=== PATIENT | male | born 1955 | race African-American/Black ===

== ENCOUNTER 2018-11-24 10:00 | Outpatient (RCR) | payer MEDICARE, MEDICAID, SELFPAY ==
--- NOTE | 2018-10-02 15:28 | HMH.PTOPWND ---
Rehab Outpt Wound Evaluation Rehab OP Wound Evaluation Start: 10/02/18 15:21 Freq: Status: Active Protocol: Document 10/02/18 15:21 FRANCK (Rec: 10/02/18 15:28 PHORMONI [id number]) Electronically Signed By Antonino Danielle, PT 10/02/18 15:21 Subjective/History History History Pt is a 62 yoaam who presents with c/o july LE edema x several years, worse over the past 6-8 mos after undergoing right TKA. He reports poor mobility after his TKA and difficulty performing his exercises which has increased his edema. He also has poor ambulation with mobility by w/ c only. He reports no c/o pain currently, but is very tender to palpation in the right lower leg. He has hx of CKD with renal failure, july TKA, right ankle ORIF, DM-II, and HTN. He is currently residing in a longterm. Lymphedema Eval Classification of Lymphedema Secondary Lymphedema Yes Stemmer's sign Stemmer's Sign yes Stage of Lymphedema Lymphedema stages Stage II (Pitting edema, increased fibrosis w/ decreased pitting) Skin Changes Dry Skin Yes Taut, Shiny Skin Yes Brittle Uneven Nails Yes Other Changes Yes Affected Extremities Areas Affected by Lymphedema/Edema Right Lower Extremity Left Lower Extremity Manual Lymphatic Drainage Treatment Area MLD Treatment Area Right Lower Extremity Left Lower Extremity Wound Problems/Impairments Impairments Problems/Impairmments Palpation Tenderness Impaired Strength Impaired Endurance Impaired Gait Pattern Impaired Walking Impaired Standing Impaired Dressing Impaired Shower/Bathing Increased Edema Lymphedema Present Subjective C/O Pain Impaired Self Care/Self Management Prognosis Rehab Potential Fair Clinical Impression Consistent with Diagnosis Yes Short Term Goals
== END 2018-11-24 10:05 | disposition home or self-care (01) ==
LOC: PT 10:00
PROVIDERS: Visit Provider Internal Medicine Adolescent Medicine
DX: I89.0 Lymphedema, not elsewhere classified (principal); R60.0 Localized edema
CPT/HCPCS: 97140; 97163

== ENCOUNTER → 2019-07-08 14:32 | Outpatient (CLI) | payer MEDICARE, SELFPAY ==
[2019-07-08 14:45] LABS: Basophils % 0.3 % (0.1-2.0); Eosinophils # 0.2 K/mm3 (0.0-0.4); Eosinophils % 3.3 % (0.1-12.0); Hematocrit 33.8 % (42.0-52.0); Hemoglobin 10.6 g/dL (14.1-18.0); Lymphocytes # 1.8 K/mm3 (0.7-4.5); Lymphocytes % 32.3 % (10-50); Mean Corpuscular HGB Conc 31.3 g/dL (31.8-35.4); Mean Corpuscular Hemoglobin 26.7 pg (27.0-31.2); Mean Corpuscular Volume 85.3 fl (80-94); Mean Platelet Volume 7.5 fl (7.4-10.4); Monocytes # 0.4 K/mm3 (0.1-1.0); Monocytes % 6.5 % (1.7-9.3); Neutrophils # 3.3 K/mm3 (1.8-7.8); Neutrophils % 57.5 % (37.0-80.0); Platelet Count 266 K/mm3 (142-424); Red Blood Count 3.96 M/mm3 (4.60-6.20); Red Cell Distribution Width 15.3 % (11.5-17.5); White Blood Count 5.7 K/mm3 (4.8-10.8)
[2019-07-08 15:06] LABS: INR 1.21 (0.9-1.1); Prothrombin Time 12.5 seconds (9.4-11.8)
== END ==
PROVIDERS: Visit Provider Internal Medicine Adolescent Medicine
DX: R07.9 Chest pain, unspecified (principal)
CPT/HCPCS: 85025; 85610

== ENCOUNTER → 2020-09-18 09:38 | Outpatient (CLI) | payer MEDICARE, SELFPAY ==
[2020-09-18 10:07] LABS: INR 2.13 (0.9-1.1); Prothrombin Time 23.8 seconds (9.4-11.8)
== END ==
PROVIDERS: Visit Provider Nurse Practitioner Family
DX: Z51.81 Encounter for therapeutic drug level monitoring (principal); Z79.01 Long term (current) use of anticoagulants
CPT/HCPCS: 36415; 85610

== ENCOUNTER → 2020-10-23 09:13 | Outpatient (CLI) | payer MEDICARE, SELFPAY ==
[2020-10-23 15:46] LABS: Basophils % 0.4 % (0.1-2.0); Eosinophils # 0.2 K/mm3 (0.0-0.4); Eosinophils % 3.4 % (0.1-12.0); Hematocrit 35.3 % (42.0-52.0); Hemoglobin 11.2 g/dL (14.1-18.0); Lymphocytes # 2.4 K/mm3 (0.7-4.5); Lymphocytes % 48.7 % (10-50); Mean Corpuscular HGB Conc 31.8 g/dL (31.8-35.4); Mean Corpuscular Hemoglobin 27.2 pg (27.0-31.2); Mean Corpuscular Volume 85.5 fl (80-94); Mean Platelet Volume 8.4 fl (7.4-10.4); Monocytes # 0.4 K/mm3 (0.1-1.0); Monocytes % 7.4 % (1.7-9.3); Platelet Count 191 K/mm3 (142-424); Red Blood Count 4.13 M/mm3 (4.60-6.20); Red Cell Distribution Width 14.3 % (11.5-17.5); White Blood Count 4.9 K/mm3 (4.8-10.8)
[2020-10-23 15:55] LABS: Alanine Aminotransferase 13 U/L (12-78); Albumin Level 3.2 g/dl (3.5-5.0); Albumin/Globulin Ratio 1.2 (1.1-1.8); Alkaline Phosphatase 109 U/L (38-126); Anion Gap 13.4 mEq/L (5-15); Aspartate Amino Transferase 17 U/L (17-59); Bilirubin,Total 0.6 mg/dl (0.2-1.3); Blood Urea Nitrogen 37 mg/dl (9-20); Calcium 8.7 mg/dl (8.4-10.2); Carbon Dioxide 28 mmol/L (22.0-30.0); Chloride 99 mmol/L (98-107); Chol/HDL Ratio 3.3 (1-3.5); Cholesterol 108 mg/dl (140-200); Estimated Glomerular Filt Rate 8 ml/min (>60); GFR (African American) 10 ML/MIN (>60); Globulin 2.6 g/dL (1.3-3.2); Glucose 69 mg/dl (74-100); HDL Cholesterol 33 mg/dl (40-60); Potassium 4.4 mmoL/L (3.5-5.1); Sodium 136 mmol/L (136-145); Total Protein,Serum 5.8 g/dl (6.3-8.2); Triglycerides 55 mg/dl (30-150); VLDL Cholesterol 11 mg/dL (0-40)
[2020-10-23 18:33] LABS: Prothrombin Time 21.4 seconds (10.1-12.5)
[2020-10-23 21:52] LABS: Hemoglobin A1C 5.3 % (4.0-6.0)
== END ==
PROVIDERS: Visit Provider Nurse Practitioner Family
DX: I10 Essential (primary) hypertension (principal); E11.40 Type 2 diabetes mellitus with diabetic neuropathy, unspecified; Z79.84 Long term (current) use of oral hypoglycemic drugs; N18.4 Chronic kidney disease, stage 4 (severe); D64.9 Anemia, unspecified
CPT/HCPCS: 36415; 80053; 80061; 83036; 85025; 85610

== ENCOUNTER → 2020-10-31 08:58 | Outpatient (CLI) | payer MEDICARE, MEDICAID, SELFPAY ==
[2020-10-31 14:12] LABS: Potassium 4.5 mmoL/L (3.5-5.1)
== END ==
PROVIDERS: Visit Provider Nurse Practitioner Family
DX: N18.4 Chronic kidney disease, stage 4 (severe) (principal)
CPT/HCPCS: 36415; 84132

== ENCOUNTER → 2020-11-21 09:25 | Outpatient (CLI) | payer MEDICARE, MEDICAID, SELFPAY ==
[2020-11-21 14:57] LABS: Prothrombin Time 21.2 seconds (10.1-12.5)
[2020-11-21 14:58] LABS: INR 1.88 (0.9-1.1)
== END ==
PROVIDERS: Visit Provider Nurse Practitioner Family
DX: Z51.81 Encounter for therapeutic drug level monitoring (principal); Z79.01 Long term (current) use of anticoagulants
CPT/HCPCS: 36415; 85610

== ENCOUNTER → 2020-11-28 17:55 | Outpatient (CLI) | payer MEDICARE, MEDICAID, SELFPAY ==
[2020-11-28 21:21] LABS: Anion Gap 13.7 mEq/L (5-15); Blood Urea Nitrogen 24 mg/dl (9-20); Carbon Dioxide 30 mmol/L (22.0-30.0); Chloride 98 mmol/L (98-107); Estimated Glomerular Filt Rate 13 ml/min (>60); GFR (African American) 16 ML/MIN (>60); Glucose 177 mg/dl (74-100); Potassium 3.7 mmoL/L (3.5-5.1); Sodium 138 mmol/L (136-145)
== END ==
PROVIDERS: Visit Provider Nurse Practitioner Family
DX: Z01.818 Encounter for other preprocedural examination (principal)
CPT/HCPCS: 80048

== ENCOUNTER → 2020-12-25 | Outpatient (CLI) | payer MEDICARE, MEDICAID, SELFPAY ==
[2020-12-25 07:20] LABS: Microscopic, Urine URINE MICROSCOPIC (MICROSCOPIC)
[2020-12-25 14:50] LABS: Appearance,Urine CLEAR (Clear); Bilirubin,Urine Negative (Negative); Blood, Urine 1+ (Negative); Color,Urine YELLOW (Yellow); Glucose,Urine (UA) Negative (Negative); Ketones,Urine Negative (Negative); Leukocyte Esterase,Urine 2+ (Negative); Nitrate,Urine Negative (Negative); PH,Urine 8.5 (5.0-8.5); Protein,Urine 2+ (Negative); Specific Gravity, Urine 1.015 (1.005-1.030); Urobilinogen,Urine 0.2 EU/dl (0.2)
[2020-12-25 15:28] LABS: WBC,Urine TNTC #/hpf (0-3)
== END ==
PROVIDERS: Visit Provider Nurse Practitioner Family
DX: N39.0 Urinary tract infection, site not specified (principal)
CPT/HCPCS: 81001; 87086; 87088

== ENCOUNTER → 2021-01-10 15:58 | Outpatient (CLI) | payer MEDICARE, MEDICAID, SELFPAY ==
[2021-01-10 17:24] LABS: Prothrombin Time 30.2 seconds (10.1-12.5)
[2021-01-10 17:48] LABS: INR 2.76 (0.9-1.1)
== END ==
PROVIDERS: Visit Provider Nurse Practitioner Family
DX: R79.1 Abnormal coagulation profile (principal)
CPT/HCPCS: 85610

== ENCOUNTER → 2021-02-08 07:24 | Outpatient (CLI) | payer MEDICARE, MEDICAID, SELFPAY ==
[2021-02-08 14:09] LABS: Prothrombin Time 25.4 seconds (10.1-12.5)
[2021-02-08 14:10] LABS: INR 2.29 (0.9-1.1)
== END ==
PROVIDERS: Visit Provider Nurse Practitioner Family
DX: R79.1 Abnormal coagulation profile (principal)
CPT/HCPCS: 36415; 85610

== ENCOUNTER → 2021-04-03 08:19 | Outpatient (CLI) | payer MEDICARE, MEDICAID, SELFPAY ==
[2021-04-03 10:14] LABS: Basophils % 0.5 % (0.1-2.0); Eosinophils # 0.2 K/mm3 (0.0-0.4); Eosinophils % 3.7 % (0.1-12.0); Hematocrit 35.3 % (42.0-52.0); Lymphocytes # 1.8 K/mm3 (0.7-4.5); Lymphocytes % 43.8 % (10-50); Mean Corpuscular HGB Conc 31.3 g/dL (31.8-35.4); Mean Corpuscular Hemoglobin 27.5 pg (27.0-31.2); Mean Corpuscular Volume 87.9 fl (80-94); Monocytes # 0.3 K/mm3 (0.1-1.0); Monocytes % 8.1 % (1.7-9.3); Neutrophils # 1.8 K/mm3 (1.8-7.8); Neutrophils % 43.9 % (37.0-80.0); Platelet Count 172 K/mm3 (142-424); Red Blood Count 4.01 M/mm3 (4.60-6.20); Red Cell Distribution Width 13.7 % (11.5-17.5); White Blood Count 4.1 K/mm3 (4.8-10.8)
[2021-04-03 10:31] LABS: INR 3.15 (0.9-1.1); Prothrombin Time 34.1 seconds (10.1-12.5)
[2021-04-03 11:30] LABS: Hemoglobin A1C 5.3 % (4.0-6.0)
[2021-04-03 13:17] LABS: Alanine Aminotransferase 9 U/L (12-78); Albumin Level 2.9 g/dl (3.5-5.0); Albumin/Globulin Ratio 1.1 (1.1-1.8); Alkaline Phosphatase 88 U/L (38-126); Anion Gap 17.2 mEq/L (5-15); Aspartate Amino Transferase 13 U/L (17-59); Bilirubin,Total 0.6 mg/dl (0.2-1.3); Blood Urea Nitrogen 59 mg/dl (9-20); Calcium 8.1 mg/dl (8.4-10.2); Carbon Dioxide 25 mmol/L (22.0-30.0); Chloride 100 mmol/L (98-107); Chol/HDL Ratio 5.3 (1-3.5); Cholesterol 149 mg/dl (140-200); Estimated Glomerular Filt Rate 4 ml/min (>60); GFR (African American) 5 ML/MIN (>60); Globulin 2.6 g/dL (1.3-3.2); Glucose 63 mg/dl (74-100); HDL Cholesterol 28 mg/dl (40-60); Potassium 4.2 mmoL/L (3.5-5.1); Sodium 138 mmol/L (136-145); Total Protein,Serum 5.5 g/dl (6.3-8.2); Triglycerides 103 mg/dl (30-150); VLDL Cholesterol 21 mg/dL (0-40)
[2021-04-03 13:28] LABS: Direct LDL Cholesterol 74.47 mg/dL (100-129)
== END ==
PROVIDERS: Visit Provider Nurse Practitioner Family
DX: N18.4 Chronic kidney disease, stage 4 (severe) (principal); I12.9 Hypertensive chronic kidney disease with stage 1 through stage 4 chronic kidney disease, or unspecified chronic kidney disease; E21.0 Primary hyperparathyroidism; E11.40 Type 2 diabetes mellitus with diabetic neuropathy, unspecified; Z79.84 Long term (current) use of oral hypoglycemic drugs
CPT/HCPCS: 36415; 80053; 80061; 83036; 85025; 85610

== ENCOUNTER → 2021-04-21 13:05 | Outpatient (CLI) | payer MEDICARE, MEDICAID, SELFPAY ==
[2021-04-21 13:08] LABS: Microscopic, Urine URINE MICROSCOPIC (MICROSCOPIC)
[2021-04-21 13:38] LABS: Appearance,Urine CLEAR (Clear); Bilirubin,Urine Negative (Negative); Blood, Urine TRACE-I (Negative); Color,Urine YELLOW (Yellow); Glucose,Urine (UA) TRACE (Negative); Ketones,Urine Negative (Negative); Leukocyte Esterase,Urine Negative (Negative); Nitrate,Urine Negative (Negative); PH,Urine 8.5 (5.0-8.5); Protein,Urine 3+ (Negative); Urobilinogen,Urine 0.2 EU/dl (0.2)
[2021-04-21 14:04] LABS: RBC,Urine Occasional #/hpf (0-3); Squamous Epithelial Cell,Urine Occasional #/hpf (0-5)
== END ==
PROVIDERS: Visit Provider Nurse Practitioner Family
DX: N39.0 Urinary tract infection, site not specified (principal)
CPT/HCPCS: 81001

== ENCOUNTER → 2021-04-23 06:36 | Outpatient (CLI) | payer MEDICARE, MEDICAID, SELFPAY ==
[2021-04-23 13:45] LABS: INR 3.39 (0.9-1.1)
== END ==
PROVIDERS: Visit Provider Nurse Practitioner Family
DX: R79.1 Abnormal coagulation profile (principal)
CPT/HCPCS: 36415; 85610

== ENCOUNTER → 2021-05-21 06:37 | Outpatient (CLI) | payer MEDICARE, MEDICAID, SELFPAY ==
[2021-05-21 14:19] LABS: INR 2.67 (0.9-1.1); Prothrombin Time 28.1 seconds (10.1-12.5)
== END ==
PROVIDERS: Visit Provider Nurse Practitioner Family
DX: R79.1 Abnormal coagulation profile (principal)
CPT/HCPCS: 36415; 85610

== ENCOUNTER → 2021-06-21 07:07 | Outpatient (CLI) | payer MEDICARE, MEDICAID, SELFPAY ==
[2021-06-21 15:51] LABS: Basophils # 0.1 K/mm3 (0-0.2); Basophils % 0.9 % (0.1-2.0); Eosinophils # 0.6 K/mm3 (0.0-0.4); Eosinophils % 10.9 % (0.1-12.0); Hematocrit 27.8 % (42.0-52.0); Hemoglobin 8.9 g/dL (14.1-18.0); Lymphocytes # 2.2 K/mm3 (0.7-4.5); Lymphocytes % 41.3 % (10-50); Mean Corpuscular HGB Conc 32.2 g/dL (31.8-35.4); Mean Corpuscular Hemoglobin 28.3 pg (27.0-31.2); Mean Corpuscular Volume 87.9 fl (80-94); Mean Platelet Volume 9.2 fl (7.4-10.4); Monocytes # 0.4 K/mm3 (0.1-1.0); Monocytes % 7.1 % (1.7-9.3); Neutrophils # 2.1 K/mm3 (1.8-7.8); Neutrophils % 39.9 % (37.0-80.0); Platelet Count 213 K/mm3 (142-424); Red Blood Count 3.16 M/mm3 (4.60-6.20); Red Cell Distribution Width 14.7 % (11.5-17.5); White Blood Count 5.3 K/mm3 (4.8-10.8)
[2021-06-21 16:00] LABS: INR 3.44 (0.9-1.1); Prothrombin Time 35.5 seconds (10.1-12.5)
[2021-06-21 16:02] LABS: Alanine Aminotransferase < 4 U/L (12-78); Albumin Level 2.9 g/dl (3.5-5.0); Albumin/Globulin Ratio 1.1 (1.1-1.8); Alkaline Phosphatase 110 U/L (38-126); Anion Gap 8.1 mEq/L (5-15); Aspartate Amino Transferase 15 U/L (17-59); Bilirubin,Total 0.4 mg/dl (0.2-1.3); Blood Urea Nitrogen 29 mg/dl (9-20); Calcium 8.9 mg/dl (8.4-10.2); Carbon Dioxide 35 mmol/L (22.0-30.0); Chloride 97 mmol/L (98-107); Chol/HDL Ratio 2.7 (1-3.5); Cholesterol 97 mg/dl (140-200); Estimated Glomerular Filt Rate 7 ml/min (>60); GFR (African American) 8 ML/MIN (>60); Globulin 2.7 g/dL (1.3-3.2); Glucose 64 mg/dl (74-100); HDL Cholesterol 36 mg/dl (40-60); Potassium 4.1 mmoL/L (3.5-5.1); Sodium 136 mmol/L (136-145); Total Protein,Serum 5.6 g/dl (6.3-8.2); Triglycerides 35 mg/dl (30-150); VLDL Cholesterol 7 mg/dL (0-40)
[2021-06-21 16:08] LABS: Hemoglobin A1C 4.5 % (4.0-6.0)
[2021-06-21 16:12] LABS: Direct LDL Cholesterol 45.58 mg/dL (100-129)
== END ==
PROVIDERS: Visit Provider Nurse Practitioner Family
DX: D64.9 Anemia, unspecified (principal); R94.5 Abnormal results of liver function studies; Z79.899 Other long term (current) drug therapy
CPT/HCPCS: 36415; 80053; 80061; 83036; 85025; 85610

== ENCOUNTER → 2021-06-25 07:36 | Outpatient (CLI) | payer MEDICARE, MEDICAID, SELFPAY ==
[2021-06-25 12:13] LABS: Basophils # 0.1 K/mm3 (0-0.2); Basophils % 1.1 % (0.1-2.0); Eosinophils # 0.2 K/mm3 (0.0-0.4); Eosinophils % 5.6 % (0.1-12.0); Hematocrit 28.8 % (42.0-52.0); Hemoglobin 9.4 g/dL (14.1-18.0); Lymphocytes # 1.8 K/mm3 (0.7-4.5); Lymphocytes % 42.7 % (10-50); Mean Corpuscular HGB Conc 32.5 g/dL (31.8-35.4); Mean Corpuscular Hemoglobin 28.4 pg (27.0-31.2); Mean Corpuscular Volume 87.2 fl (80-94); Mean Platelet Volume 8.4 fl (7.4-10.4); Monocytes # 0.3 K/mm3 (0.1-1.0); Monocytes % 6.9 % (1.7-9.3); Neutrophils # 1.9 K/mm3 (1.8-7.8); Neutrophils % 43.7 % (37.0-80.0); Platelet Count 232 K/mm3 (142-424); Red Cell Distribution Width 14.7 % (11.5-17.5); White Blood Count 4.3 K/mm3 (4.8-10.8)
[2021-06-25 16:05] LABS: INR 2.39 (0.9-1.1); Prothrombin Time 25.3 seconds (10.1-12.5)
== END ==
PROVIDERS: Visit Provider Nurse Practitioner Family
DX: Z51.81 Encounter for therapeutic drug level monitoring (principal); Z79.01 Long term (current) use of anticoagulants
CPT/HCPCS: 36415; 85025; 85610

== ENCOUNTER 2021-07-19 17:35 | Inpatient (IN) | payer MEDICARE, MEDICAID, SELFPAY ==
[2021-07-19] VITALS (29 sets, daily range): BP systolic 68–101; BP diastolic 37–71; PULSE 62–104; RESP 20–30; TEMP 37–37.4; O2SAT 87–99; BMI 32.8; BMI 24.7
--- NOTE | 2021-07-19 17:42 | XR_ITS ---
PROCEDURE INFORMATION: Exam: XR Chest Exam date and time: 07/19/2021 5:42 PM Age: 65 years old Clinical indication: Patient HX: Congestion, AMS; Additional info: AMS, congesiton TECHNIQUE: Imaging protocol: XR of the chest. Views: 1 view. Total images: 1 COMPARISON: No relevant prior studies available. FINDINGS: Lungs: Pulmonary vasculature grossly normal. Bilateral perihilar and basilar alveolar opacities concerning for pneumonia versus atelectasis. Pleural spaces: No pleural effusion. No pneumothorax. Heart/Mediastinum: Heart size normal. No tracheal/mediastinal shift. Vasculature: Moderate aortic ectasia/tortuosity. Bones/joints: No acute osseous abnormalities are identified. IMPRESSION: Bilateral perihilar and basilar alveolar opacities concerning for pneumonia versus atelectasis.
--- NOTE | 2021-07-19 17:44 | ECG_ITS ---
APPROVED REPORT Exam: Resting ECG HR:95 bpm ECG Measurements Heart Rate 95 AXES NV 146 P 49 QRSd 126 QRS -55 QT 390 T 77 QTc 490 Conclusion Sinus rhythm with premature supraventricular complexes Left axis deviation Nonspecific intraventricular block Cannot rule out Septal infarct, age undetermined Abnormal ECG Electronically signed by : Yusef Juarez MD 07/20/2021 09:52:58
[2021-07-19 17:54] LABS: Basophils % 0.3 % (0.1-2.0); Eosinophils % 0.5 % (0.1-12.0); Hematocrit 27.3 % (42.0-52.0); Hemoglobin 8.6 g/dL (14.1-18.0); Lymphocytes # 1.6 K/mm3 (0.7-4.5); Lymphocytes % 20.8 % (10-50); Mean Corpuscular HGB Conc 31.5 g/dL (31.8-35.4); Mean Corpuscular Hemoglobin 28.1 pg (27.0-31.2); Mean Corpuscular Volume 89.1 fl (80-94); Monocytes # 0.3 K/mm3 (0.1-1.0); Monocytes % 4.4 % (1.7-9.3); Neutrophils # 5.8 K/mm3 (1.8-7.8); Platelet Count 345 K/mm3 (142-424); Red Blood Count 3.07 M/mm3 (4.60-6.20); Red Cell Distribution Width 15.1 % (11.5-17.5); White Blood Count 7.8 K/mm3 (4.8-10.8)
[2021-07-19 17:57] LABS: Chloride 94 mmol/L (98-107); Potassium 3.6 mmoL/L (3.5-5.1); Sodium 137 mmol/L (136-145)
[2021-07-19 17:58] LABS: ABG Base Excess 5.9 mmol/L (-2.4-2.3); ABG HCO3 28.3 mmhg (22.0-26.0); ABG Oxygen Saturation 92 % (90-100); ABG PCO2 33.2 mmhg (35.0-45.0); ABG PH 7.55 mmol/L (7.35-7.45); ABG PO2 56.8 mmhg (80-100); ABG TCO2 29.3 mmhg (23-27); Oxygen 6LPM %
[2021-07-19 17:59] LABS: Source R BRACHIAL
[2021-07-19 18:00] LABS: Alanine Aminotransferase 17 U/L (12-78); Albumin Level 2.8 g/dl (3.5-5.0); Albumin/Globulin Ratio 1.1 (1.1-1.8); Alkaline Phosphatase 69 U/L (38-126); Anion Gap 15.6 mEq/L (5-15); Aspartate Amino Transferase 23 U/L (17-59); Bilirubin,Total 0.5 mg/dl (0.2-1.3); Calcium 8.9 mg/dl (8.4-10.2); Carbon Dioxide 31 mmol/L (22.0-30.0); Estimated Glomerular Filt Rate 8 ml/min (>60); GFR (African American) 9 ML/MIN (>60); Globulin 2.5 g/dL (1.3-3.2); Glucose 130 mg/dl (74-100); Total Protein,Serum 5.3 g/dl (6.3-8.2)
[2021-07-19 18:01] LABS: Magnesium 1.5 mg/dl (1.6-2.3)
--- NOTE | 2021-07-19 18:03 | CT_ITS ---
PROCEDURE INFORMATION: Exam: CT Chest Without Contrast; Diagnostic Exam date and time: 07/19/2021 6:03 PM Age: 65 years old Clinical indication: Cough; Additional info: AMS TECHNIQUE: Imaging protocol: Diagnostic computed tomography of the chest without contrast. Radiation optimization: All CT scans at this facility use at least one of these dose optimization techniques: automated exposure control; mA and/or kV adjustment per patient size (includes targeted exams where dose is matched to clinical indication); or iterative reconstruction. COMPARISON: CR XR CHEST PORTABLE 07/19/2021 6:02 PM FINDINGS: Limitations: Respiratory motion artifact degrades images, limiting sensitivity of exam. Lungs: Heterogeneous consolidative opacities in the dependent portions of the bilateral lungs. Few calcified pulmonary granulomata, compatible with chronic sequelae of prior granulomatous disease. Pleural spaces: No pneumothorax. No pleural effusion. Heart: Biventricular enlargement. Aortic valve leaflet calcifications. No significant pericardial effusion. Mediastinal space: Dilated patulous esophagus with layering fluid in the mid and distal esophagus. Aorta: Aorta is normal in caliber. Lymph nodes: Calcified lymph nodes, compatible with chronic sequelae of prior granulomatous disease. Limited evaluation for mediastinal lymph nodes due to lack of intravenous contrast. Stomach: The stomach is moderately distended with a large amount of fluid. Impression Intraperitoneal space: No emergent findings or suspicious mass lesions in the visualized upper abdomen. Bones/joints: No definite acute osseous abnormality, noting respiratory motion artifact limits evaluation for rib fractures. Soft tissues: Asymmetric gynecomastia, right greater than left. IMPRESSION: 1. Heterogeneous consolidative opacities in the dependent portions of the bilateral lungs, concerning for aspiration pneumonitis and/or pneumonia. 2. Dilated patulous esophagus with layering fluid in the mid and distal esophagus, posing increased risk for aspiration. The stomach is also moderately distended with a large amount of fluid. Consider decompression. 3. Biventricular enlargement. 4. Aortic valve leaflet calcifications. 5. Asymmetric gynecomastia, right greater than left. 6. Additional non-acute ancillary findings are detailed above.
--- NOTE | 2021-07-19 18:03 | CT_ITS ---
PROCEDURE INFORMATION: Exam: CT Abdomen And Pelvis Without Contrast Exam date and time: 07/19/2021 6:03 PM Age: 65 years old Clinical indication: Other: R/O gi bleed; Additional info: AMS TECHNIQUE: Imaging protocol: Computed tomography of the abdomen and pelvis without contrast. Radiation optimization: All CT scans at this facility use at least one of these dose optimization techniques: automated exposure control; mA and/or kV adjustment per patient size (includes targeted exams where dose is matched to clinical indication); or iterative reconstruction. COMPARISON: CR XR CHEST PORTABLE 07/19/2021 6:02 PM FINDINGS: Tubes, catheters and devices: Denny catheter. Lungs: Atelectasis both lower lobes with superimposed consolidations which may be aspiration or other pneumonia. Heart: Minimal pericardial fluid. Mediastinal space: There is fairly pronounced distention of fluid-filled stomach with fluid extending into the visualized esophagus. No small bowel obstruction. Gastric outlet obstruction is not excluded here. Liver: Normal. No mass. Gallbladder and bile ducts: Cholecystectomy. Pancreas: Normal. No ductal dilation. Spleen: Normal. No splenomegaly. Adrenal glands: Normal. No mass. Kidneys and ureters: Multiple renal hypodensities, most likely all simple cysts but not fully characterized here. Largest is on the right at 2.2 cm. Kidneys are moderately atretic. Stomach and bowel: See Mediastinal space finding. Appendix: Normal appendix. Intraperitoneal space: Unremarkable. No free air. No significant fluid collection. Vasculature: Limited atherosclerosis. Lymph nodes: Unremarkable. No enlarged lymph nodes. Urinary bladder: Unremarkable as visualized. Reproductive: Unremarkable as visualized. Bones/joints: Unremarkable. No acute fracture. Soft tissues: Unremarkable. Other findings: No other acute disease seen on nonenhanced study. As Above. IMPRESSION: 1. Atelectasis both lower lobes with superimposed consolidations which may be aspiration or other pneumonia. 2. There is fairly pronounced distention of fluid-filled stomach with fluid extending into the visualized esophagus. No small bowel obstruction. Gastric outlet obstruction is not excluded here. 3. No other acute disease seen on nonenhanced study. As Above.
[2021-07-19 18:12] LABS: Troponin I 0.04 ng/ml (0.00-0.034)
--- NOTE | 2021-07-19 18:14 | HMH.EDAMS ---
ED Disposition Clinical Impression: Altered mental status, GI bleed, Sepsis, Pneumonia Disposition: Still a Patient Condition on Discharge: Critical Referrals: Provider,Referral, MD [Primary Care Provider] - - Critical Care Critical Care Time: Yes Attestation: On 07/19/21, the high probability of a clinically significant, sudden or life threatening deterioration of the following system(s) required my full and direct attention, intervention and personal management. The time I documented below is in addition to time spent performing reported procedures but includes the following listed in this critical care notation. Total Critical Care Time: 30 Vital system(s) involved:: Circulatory Failure, Respiratory Failure, Shock (Septic) My critical care processes included: Assessment & monitoring of V/S, Initial and Re-exams, Data Review/Interpretation, Coordinating Care, Medication Orders and management, Documentation Medical Decision Making - Medical Records Medical records reviewed: Yes: I reviewed the patient's medical records. - Russell Inquiry Pt receiving controlled substance: No Vital Signs: 07/19/21 17:35 07/19/21 17:36 07/19/21 17:39 Temperature 99.4 F Temperature Source Rectal Pulse Rate 98 H 97 H Pulse Rate [Right Radial] 99 H Respiratory Rate 22 Blood Pressure 68/45 L 81/41 L Blood Pressure [Right Arm] 91/71 L Blood Pressure Mean [Right Arm] 77 Blood Pressure Source Automatic Cuff Automatic Cuff Blood Pressure Source [Right Arm] Automatic Cuff Blood Pressure Position Sitting Sitting Blood Pressure Position [Right Arm] Sitting 02 Sat by Pulse Oximetry 98 87 L 94 L Oxygen Delivery Method Nasal Cannula Room Air Nasal Cannula Oxygen Flow Rate (LPM) 6 6 07/19/21 18:12 07/19/21 18:16 07/19/21 18:31 Temperature Temperature Source Pulse Rate 101 H 94 H 92 H Pulse Rate [Right Radial] Respiratory Rate Blood Pressure 69/43 L 74/37 L 81/50 L Blood Pressure [Right Arm] Blood Pressure Mean [Right Arm] Blood Pressure Source Automatic Cuff Automatic Cuff Automatic Cuff Blood Pressure Source [Right Arm] Blood Pressure Position Sitting Blood Pressure Position [Right Arm] 02 Sat by Pulse Oximetry 99 95 97 Oxygen Delivery Method Nasal Cannula Nasal Cannula Nasal Cannula Oxygen Flow Rate (LPM) 6 6 6 - Lab Data Lab results reviewed: Yes: I reviewed the patient's lab results. Lab Results 07/19/21 17:35: WBC 7.8, RBC 3.07 L, Hgb 8.6 L, Hct 27.3 L, MCV 89.1, MCH 28.1, MCHC 31.5 L, RDW 15.1, Plt Count 345, MPV 9.0, Neut % (Auto) 74.0, Lymph % (Auto) 20.8, Waldo % (Auto) 4.4, Eos % (Auto) 0.5, Baso % (Auto) 0.3, Neut # (Auto) 5.8, Lymph # (Auto) 1.6, Waldo # (Auto) 0.3, Eos # (Auto) 0.0, Baso # (Auto) 0.0 07/19/21 17:35: Sodium 137, Potassium 3.6, Chloride 94 L, Carbon Dioxide 31 H, Anion Gap 15.6 H, BUN 102 H*, Creatinine 7.30 H, Estimated Creat Clear 17, Estimated GFR 8 L*, Est GFR ( Amer) 9 L*, Glucose 130 H, Calcium 8.9, Magnesium 1.5 L, Total Bilirubin 0.5, AST 23, ALT 17, Alkaline Phosphatase 69, Troponin I 0.04 H, Total Protein 5.3 L, Albumin 2.8 L, Globulin 2.5, Albumin/Globulin Ratio 1.1 07/19/21 17:42: VBG pH 7.51 H, VBG pCO2 39.0, VBG pO2 69.6 H, VBG HCO3 30.2 H, VBG Total CO2 31.4 H, VBG O2 Saturation 94.4 H, VBG Base Excess 7.1 H 07/19/21 17:42: Lactate 2.0 07/19/21 17:56: Specimen Source R brachial, O2 % 6lpm, ABG pH 7.55 H, ABG pCO2 33.2 L, ABG pO2 56.8 L, ABG HCO3 28.3 H, ABG Total CO2 29.3 H, ABG O2 Saturation 92, ABG Base Excess 5.9 H 07/19/21 18:04: Blood Type O Positive, Antibody Screen Negative 07/19/21 18:50: SARS-CoV-2 (PCR) Not detected, Influenza A Untype (PCR) Not detected, Influenza Type B (PCR) Not detected Result diagrams: 07/19/21 17:35 07/19/21 17:35 Orders (Tests/Meds): ED MEDICATIONS Generic Name Dose Route Start Last Admin Trade Name Freq PRN Reason Stop Dose Admin Sodium Chloride 1,000 mls @ 999 mls/hr 07/19/21 17:45 07/19/21 17:
[2021-07-19 18:16] LABS: Creatinine Clearance Estimated 17 mL/min (50-200)
[2021-07-19 18:17] LABS: Blood Urea Nitrogen 102 mg/dl (9-20)
--- NOTE | 2021-07-19 18:30 | CT_ITS ---
PROCEDURE INFORMATION: Exam: CT Head Without Contrast Exam date and time: 07/19/2021 6:30 PM Age: 65 years old Clinical indication: Altered mental status/memory loss; Additional info: AMS TECHNIQUE: Imaging protocol: Computed tomography of the head without contrast. Total images: 278 Radiation optimization: All CT scans at this facility use at least one of these dose optimization techniques: automated exposure control; mA and/or kV adjustment per patient size (includes targeted exams where dose is matched to clinical indication); or iterative reconstruction. COMPARISON: No relevant prior studies available. FINDINGS: Brain: Mild generalized atrophy. Mild bilateral white matter hypodensities which are nonspecific but most commonly associated with chronic microvascular ischemia in this age group. No extra-axial fluid collections. No evidence of acute intracranial hemorrhage. Castro-white differentiation is well maintained. No CT evidence of large territory acute or subacute intracranial ischemia/infarct. 5 mm chronic lacunar infarct in the left frontal subcortical white matter. No midline shift or herniation. Cerebral ventricles: Ventricles normal. Paranasal sinuses: Visualized paranasal sinuses are clear. Mastoid air cells: Visualized mastoid air cells are clear. Orbital cavity: Visualized orbital contents demonstrate no acute abnormality. Vasculature: No asymmetric vascular hyperdensities suggestive of thrombosis are identified. Bones/joints: The calvarium and visualized facial bones are intact. Soft tissues: The scalp and visualized soft tissues demonstrate no acute abnormality. Soft tissue fullness in the sella measuring 8.5 cm AP x 1.5 cm transverse by 1.1 cm craniocaudal. This is concerning for a small mass lesion such as pituitary adenoma. Nonemergent MRI of the pituitary gland recommended further characterization. Other findings: The IACs are grossly normal. IMPRESSION: 1. No acute intracranial process. No intracranial hemorrhage or mass effect. 2. Soft tissue fullness in the sella suspicious for a small mass lesion such as pituitary adenoma. Nonemergent evaluation with multiphasic pre and postcontrast MRI of the pituitary recommended. 3. Atrophy and chronic microvascular changes consistent with age.
[2021-07-19 18:31] LABS: VBG Base Excess 7.1 mmol/L (-2.4-2.3); VBG HCO3 30.2 mmol/L (23-30); VBG Oxygen Saturation 94.4 % (50-70); VBG PH 7.51 mmol/L (7.31-7.41); VBG PO2 69.6 mmol/L (28-40); VBG Total CO2 31.4 mmol/L (23-27)
--- NOTE | 2021-07-19 18:32 | PC.NURSE ---
PT to CT
--- NOTE | 2021-07-19 18:48 | PC.NURSE ---
Pt returned from CT
[2021-07-19 19:07] LABS: Coronavirus 19, PCR Not Detected (NotDetected); Influenza A, PCR Not Detected (NotDetected); Influenza B, PCR Not Detected (NotDetected)
--- NOTE | 2021-07-19 19:35 | PC.NURSE ---
called [facility] and they dont have a bed. MD on phone with mds
--- NOTE | 2021-07-19 19:49 | PC.NURSE ---
, [facility], and [facility] all declined accepting pt
--- NOTE | 2021-07-19 20:20 | XR_ITS ---
PROCEDURE INFORMATION: Exam: XR Abdomen Exam date and time: 07/19/2021 8:20 PM Age: 65 years old Clinical indication: Device placement; Gi device; Nasogastric tube; Additional info: Ng placement TECHNIQUE: Imaging protocol: XR of the abdomen. Views: Frontal supine view of the abdomen. 1 View. COMPARISON: CT ABDOMEN PELVIS WO CON 07/19/2021 6:38 PM FINDINGS: Tubes, catheters and devices: Nasogastric tube extends down into the stomach. Lungs: Bibasilar atelectasis and possible consolidations again evident. Gastrointestinal tract: Normal. No bowel dilation. Bones/joints: Unremarkable. IMPRESSION: Nasogastric tube extends down into the stomach.
[2021-07-19 21:25] LABS: Basophils % 0.3 % (0.1-2.0); Eosinophils % 0.2 % (0.1-12.0); Hematocrit 26.2 % (42.0-52.0); Hemoglobin 8.4 g/dL (14.1-18.0); Lymphocytes # 1.4 K/mm3 (0.7-4.5); Lymphocytes % 17.2 % (10-50); Mean Corpuscular HGB Conc 31.9 g/dL (31.8-35.4); Mean Corpuscular Hemoglobin 28.8 pg (27.0-31.2); Mean Corpuscular Volume 90.2 fl (80-94); Mean Platelet Volume 8.7 fl (7.4-10.4); Monocytes # 0.4 K/mm3 (0.1-1.0); Monocytes % 4.5 % (1.7-9.3); Neutrophils # 6.3 K/mm3 (1.8-7.8); Neutrophils % 77.9 % (37.0-80.0); Platelet Count 269 K/mm3 (142-424); Red Blood Count 2.91 M/mm3 (4.60-6.20); Red Cell Distribution Width 15.4 % (11.5-17.5); White Blood Count 8.1 K/mm3 (4.8-10.8)
--- NOTE | 2021-07-19 21:28 | PC.NURSE ---
The following hospitals have been called, and also do not have a bed for this patient: -[facility] - - [facility] - [facility] - [facility] - [facility] [place] -[facility]
[2021-07-19 21:49] LABS: Troponin I 0.04 ng/ml (0.00-0.034)
[2021-07-19 21:58] LABS: Microscopic, Urine URINE MICROSCOPIC (MICROSCOPIC)
[2021-07-19 22:02] LABS: Appearance,Urine SL CLOUDY (Clear); Bilirubin,Urine Negative (Negative); Blood, Urine 3+ (Negative); Color,Urine YELLOW (Yellow); Glucose,Urine (UA) Negative (Negative); Ketones,Urine Negative (Negative); Leukocyte Esterase,Urine 1+ (Negative); Nitrate,Urine Negative (Negative); Protein,Urine 3+ (Negative); Specific Gravity, Urine 1.015 (1.005-1.030); Urobilinogen,Urine 0.2 EU/dl (0.2)
[2021-07-19 22:16] LABS: Occult Blood,Stool Positive (Negative)
[2021-07-19 22:18] LABS: Bacteria,Urine 1+ /lpf
[2021-07-19 22:59] LABS: INR 5.25 (0.9-1.1); Prothrombin Time 52.5 seconds (10.1-12.5)
[2021-07-20] VITALS (32 sets, daily range): BP systolic 80–122; BP diastolic 42–79; PULSE 82–142; RESP 14–20; TEMP 36.6–37; O2SAT 92–100; BMI 24.9
--- NOTE | 2021-07-20 00:14 | ECG_ITS ---
APPROVED REPORT Exam: Resting ECG HR:131 bpm ECG Measurements Heart Rate 131 AXES QRSd 114 QRS -59 QT 342 T 101 QTc 505 Conclusion Atrial fibrillation with rapid ventricular response with premature ventricular or aberrantly conducted complexes Left axis deviation Minimal voltage criteria for LVH LBBB Abnormal ECG Electronically signed by : Yusef Juarez MD 07/20/2021 09:52:48
--- NOTE | 2021-07-20 00:38 | PC.NURSE ---
Reported received from ER. Patient was on 2 mcg Levo, B/P was starting to drop 80/43, titrated to 4 mcg @ 23:40, B/P was not increasing titrated drip to 6 mcg @ 23:55, B/P is maintaining at 107/57. Pt's HR started to increase to 140-150, received stat EKG, in ER read A-Fib with RVR. Paged emissions testing technician and received order to give 5mg IV Metoprolol.
[2021-07-20 01:25] LABS: Basophils % 0.3 % (0.1-2.0); Eosinophils % 0.4 % (0.1-12.0); Hematocrit 26.2 % (42.0-52.0); Hemoglobin 8.5 g/dL (14.1-18.0); Lymphocytes # 1.8 K/mm3 (0.7-4.5); Lymphocytes % 17.6 % (10-50); Mean Corpuscular HGB Conc 32.4 g/dL (31.8-35.4); Mean Corpuscular Hemoglobin 28.9 pg (27.0-31.2); Mean Platelet Volume 9.5 fl (7.4-10.4); Monocytes # 0.6 K/mm3 (0.1-1.0); Monocytes % 5.5 % (1.7-9.3); Neutrophils # 7.6 K/mm3 (1.8-7.8); Neutrophils % 76.1 % (37.0-80.0); Platelet Count 284 K/mm3 (142-424); Red Blood Count 2.95 M/mm3 (4.60-6.20); Red Cell Distribution Width 15.4 % (11.5-17.5)
[2021-07-20 06:06] LABS: Basophils # 0.1 K/mm3 (0-0.2); Eosinophils % 0.3 % (0.1-12.0); Hematocrit 26.5 % (42.0-52.0); Hemoglobin 7.9 g/dL (14.1-18.0); Lymphocytes # 1.2 K/mm3 (0.7-4.5); Lymphocytes % 18.7 % (10-50); Mean Corpuscular HGB Conc 29.7 g/dL (31.8-35.4); Mean Corpuscular Hemoglobin 28.9 pg (27.0-31.2); Mean Corpuscular Volume 97.3 fl (80-94); Mean Platelet Volume 8.8 fl (7.4-10.4); Monocytes # 0.3 K/mm3 (0.1-1.0); Neutrophils # 4.9 K/mm3 (1.8-7.8); Platelet Count 248 K/mm3 (142-424); Red Blood Count 2.73 M/mm3 (4.60-6.20); Red Cell Distribution Width 15.8 % (11.5-17.5); White Blood Count 6.4 K/mm3 (4.8-10.8)
--- NOTE | 2021-07-20 06:07 | PC.NURSE ---
Levo drip was titrated to 8mcg @ 01:00, 6mcg @ 02:00, 4mcg @ 04:00 and patient has maintained SBP >90. NG remains in place in the left nare with significant output of 500ML. Denny remains in place with very little output. Pt remains on 6L NC with O2 >90%. Pt could state Name and with mumbled speech. FSBS 157 @ 06:00. called for an update on pt @ 04:00, but stated they do not have a bed at this time.
[2021-07-20 06:48] LABS: Chloride 98 mmol/L (98-107); Potassium 3.6 mmoL/L (3.5-5.1); Sodium 139 mmol/L (136-145)
[2021-07-20 06:51] LABS: Alanine Aminotransferase 16 U/L (12-78); Albumin Level 2.6 g/dl (3.5-5.0); Alkaline Phosphatase 61 U/L (38-126); Anion Gap 16.6 mEq/L (5-15); Aspartate Amino Transferase 27 U/L (17-59); Bilirubin,Total 0.4 mg/dl (0.2-1.3); Calcium 8.5 mg/dl (8.4-10.2); Carbon Dioxide 28 mmol/L (22.0-30.0); Creatinine Clearance Estimated 13 mL/min (50-200); Estimated Glomerular Filt Rate 8 ml/min (>60); GFR (African American) 9 ML/MIN (>60); Globulin 2.5 g/dL (1.3-3.2); Glucose 138 mg/dl (74-100); Total Protein,Serum 5.1 g/dl (6.3-8.2)
[2021-07-20 07:28] LABS: Blood Urea Nitrogen 109 mg/dl (9-20)
--- NOTE | 2021-07-20 07:33 | HMH.HP ---
*Admission Date: 07/20/21 *Chief complaint: confusion, hypotension, black stool *History of present illness: Mr. Blackman is a 65-year-old -[place] male with past medical history of end-stage renal disease on dialysis Friday and Friday. He resides [facility]. Was noted to have worsening hypotension and some confusion at his [place] [facility] yesterday. This initiated transfer to the ER for further assessment and management. On arrival was found to be hypotensive, having black tarry stools and some coffee-ground emesis. Images of his abdomen showed extensive distention of his stomach but no ramy small bowel obstruction. NG was placed with prompt removal of over 2 L of gastric contents that was dark to black in color. Patient was also afebrile on arrival but hypoxemic. Initiated on supplemental oxygen. Given his tachycardia, hypotension, tachypnea, patient met sepsis criteria and was started on broad-spectrum antibiotics including vancomycin and Zosyn. Numerous attempts made to transfer patient given his dependence on hemodialysis and our inability to provide this service. Unfortunately there were no facilities within a 200 mile radius plus [place] able to accept transfer. Patient admitted for further management of concern for small bowel obstruction, GI bleed, hypotension/sepsis. Initial labs showed hemoglobin in the mid 8 range. Repeat labs overnight remained in the mid 8 range until this morning with morning hemoglobin of 7.9. No bright red blood per NG tube or per rectum. Patient received over 2 L of IV fluid resuscitation but has required Levophed overnight to maintain maps greater than 60. Developed some A. fib with RVR necessitating as needed doses of IV metoprolol. Patient is more alert and interactive this morning and able to answer questions. This is significant improvement from reported presentation in the ER last night. [facility] History I have reviewed the patient's past medical history: Yes Medical History: Reports:: Atrial Fibrillation, Diabetes Mellitus Type 2, Hypertension, Renal Disease (ESRD on HD T,R,S) Denies:: Cancer, MRSA *Have you ever received a pneumonia vaccine?: Yes *Have you received a flu vaccine this season?: Yes Other Medical History: Reports: Glaucoma, Thyroid Disease Laterality Cases: Left: Total Knee Replacement Amputation: No Fractures: No - *Social History Smoking Status: Smoker, status unknown Alcohol Intake: never *Occupational Status:: retired Housing: assisted living facility *Travel in the last 8 weeks: None Family Hx:: No significant family history Review of Systems - Review of Systems Review of systems:: pertinent systems reviewed and negative unless documented below (14 point review of systems performed, pertinent positives and negatives as per HPI) Meds Home Medications Medication Instructions Recorded Confirmed Type Acetaminophen [Tylenol 325mg 650 mg PO Q4HP PRN 07/19/21 07/20/21 History Tablet] Atorvastatin Calcium [Lipitor 40mg 40 mg PO HS 07/19/21 07/19/21 History Tab] Bisacodyl [Bisacodyl 10mg Supp] 1 supp RC Q72H PRN 07/19/21 07/20/21 History Bumetanide 4 mg PO DAILY 07/19/21 07/19/21 History Docusate Sodium [Docusate Sodium 100 mg PO DAILY 07/19/21 07/19/21 History 100mg Cap] Ferric Citrate [Auryxia] 210 mg PO TIDWMEAL 07/19/21 07/20/21 History Finasteride [Proscar 5mg Tablet] 5 mg PO DAILY 07/19/21 07/19/21 History Gabapentin [Gabapentin 100mg Cap] 100 mg PO DAILY 07/19/21 07/19/21 History [place]-3 Fatty Acids/Fish Oil [Fish 1,000 mg PO TID 07/19/21 07/20/21 History Oil 1,000 mg Capsule] Omeprazole Magnesium [Prilosec Otc 20 mg PO DAILY 07/19/21 07/19/21 History 20mg Tab] Sodium Bicarbonate 1,950 mg PO BID 07/19/21 07/19/21 History Tamsulosin HCl 0.4 mg PO HS 07/19/21 07/19/21 History Warfarin Sodium [Coumadin 3mg 6 mg PO DAILY 07/19/21 07/19/21 History tablet] calcitrioL [Calcitriol 0.25mcg 0.5 mcg PO DAILY 12
[2021-07-20 08:18] LABS: INR 4.94 (0.9-1.1)
[2021-07-20 08:28] LABS: Prothrombin Time 49.6 seconds (10.1-12.5)
--- NOTE | 2021-07-20 09:21 | HMH.PHACONS ---
- Pharmacy Consult Date: 07/20/21 Time: 09:21 Referring provider: EDWARD Reason for Consult:: VANCOMYCIN DOSING CONSULT Allergies and ADEs:: Allergies Allergy/AdvReac Type Severity Reaction Status Date / Time No Known Allergies Allergy Verified 07/19/21 18:12 Home Medications:: Home Medications Medication Instructions Recorded Confirmed Type Acetaminophen [Tylenol 325mg 650 mg PO Q4-6H PRN 07/19/21 07/19/21 History Tablet] Atorvastatin Calcium [Lipitor 40mg 40 mg PO HS 07/19/21 07/19/21 History Tab] Bisacodyl [Bisacodyl 10mg Supp] 1 supp RC TIDP PRN 07/19/21 07/19/21 History Bumetanide 4 mg PO DAILY 07/19/21 07/19/21 History Docusate Sodium [Docusate Sodium 100 mg PO DAILY 07/19/21 07/19/21 History 100mg Cap] Ferric Citrate [Auryxia] 210 mg PO TID 07/19/21 07/19/21 History Finasteride [Proscar 5mg Tablet] 5 mg PO DAILY 07/19/21 07/19/21 History Gabapentin [Gabapentin 100mg Cap] 100 mg PO DAILY 07/19/21 07/19/21 History Metoprolol Tartrate 50 mg PO BID 07/19/21 07/19/21 History [place]-3 Fatty Acids/Fish Oil [Fish 1 each PO TID 07/19/21 07/19/21 History Oil 1,000 mg Capsule] Omeprazole Magnesium [Prilosec Otc 20 mg PO DAILY 07/19/21 07/19/21 History 20mg Tab] Sodium Bicarbonate 1,950 mg PO BID 07/19/21 07/19/21 History Tamsulosin HCl 0.4 mg PO HS 07/19/21 07/19/21 History Warfarin Sodium [Coumadin 3mg 6 mg PO DAILY 07/19/21 07/19/21 History tablet] calcitrioL [Calcitriol 0.25mcg 0.5 mcg PO DAILY 07/19/21 07/19/21 History Capsule] polyethylene glycoL 3350 [Miralax 17 gm PO DAILY 07/19/21 07/19/21 History 17gm Packet] timoloL maleate [Timoptic 0.5% 1 drp EYE-BOTH BID 07/19/21 07/19/21 History opth soln 5mL] Height: 1.93 m Weight: 92.85 kg Laboratory Results:: Laboratory Results - last 24 hr 07/19/21 17:35: WBC 7.8, RBC 3.07 L, Hgb 8.6 L, Hct 27.3 L, MCV 89.1, MCH 28.1, MCHC 31.5 L, RDW 15.1, Plt Count 345, MPV 9.0, Neut % (Auto) 74.0, Lymph % (Auto) 20.8, [place] % (Auto) 4.4, Eos % (Auto) 0.5, Baso % (Auto) 0.3, Neut # (Auto) 5.8, Lymph # (Auto) 1.6, [place] # (Auto) 0.3, Eos # (Auto) 0.0, Baso # (Auto) 0.0 07/19/21 17:35: Sodium 137, Potassium 3.6, Chloride 94 L, Carbon Dioxide 31 H, Anion Gap 15.6 H, BUN 102 H*, Creatinine 7.30 H, Estimated Creat Clear 17, Estimated GFR 8 L*, Est GFR ( Amer) 9 L*, Glucose 130 H, Calcium 8.9, Magnesium 1.5 L, Total Bilirubin 0.5, AST 23, ALT 17, Alkaline Phosphatase 69, Troponin I 0.04 H, Total Protein 5.3 L, Albumin 2.8 L, Globulin 2.5, Albumin/Globulin Ratio 1.1 07/19/21 17:35: PT 52.5 H, INR 5.25 H 07/19/21 17:42: VBG pH 7.51 H, VBG pCO2 39.0, VBG pO2 69.6 H, VBG HCO3 30.2 H, VBG Total CO2 31.4 H, VBG O2 Saturation 94.4 H, VBG Base Excess 7.1 H 07/19/21 17:42: Lactate 2.0 07/19/21 17:56: Specimen Source R brachial, O2 % 6lpm, ABG pH 7.55 H, ABG pCO2 33.2 L, ABG pO2 56.8 L, ABG HCO3 28.3 H, ABG Total CO2 29.3 H, ABG O2 Saturation 92, ABG Base Excess 5.9 H 07/19/21 18:04: Blood Type O Positive, Antibody Screen Negative 07/19/21 18:04: Stool Occult Blood Positive A 07/19/21 18:50: SARS-CoV-2 (PCR) Not detected, Influenza A Untype (PCR) Not detected, Influenza Type B (PCR) Not detected 07/19/21 21:14: Troponin I 0.04 H 07/19/21 21:14: WBC 8.1, RBC 2.91 L, Hgb 8.4 L, Hct 26.2 L, MCV 90.2, MCH 28.8, MCHC 31.9, RDW 15.4, Plt Count 269, MPV 8.7, Neut % (Auto) 77.9, Lymph % (Auto) 17.2, [place] % (Auto) 4.5, Eos % (Auto) 0.2, Baso % (Auto) 0.3, Neut # (Auto) 6.3, Lymph # (Auto) 1.4, [place] # (Auto) 0.4, Eos # (Auto) 0.0, Baso # (Auto) 0.0 07/19/21 21:31: Urine Color Yellow, Urine Appearance Sl cloudy, Urine pH 8.0, Ur Specific [place] 1.015, Urine Protein 3+, Urine Glucose (UA) Negative, Urine Ketones Negative, Urine Blood 3+, Urine Nitrate Negative, Urine Bilirubin Negative, Urine Urobilinogen 0.2, Ur Leukocyte Esterase 1+ A, Urine RBC 10-20, Urine WBC 5-10, Ur Squamous Epith Cells 3-5, Urine Bacteria 1+ 07/20/21 01:00: WBC 10.0, RBC 2.95 L, Hgb 8.5 L, Hct 26.2 L, MCV
--- NOTE | 2021-07-20 10:28 | HMH.PHAINT ---
MEDICATION RECONCILIATION COMPLETE USING MAR FROM MIGUELITO JHOAN
--- NOTE | 2021-07-20 10:29 | P.CONPHA_ITS ---
[facility] Pharmacy VTE Monitoring - Patient Demographics Admission date: 07/20/21 Report Date: 07/20/21 Time: 10:29 Allergies/Adverse Reactions: Patient Allergies No Known Allergies Allergy (Verified 07/19/21 18:12) Height: 1.93 m Weight: 92.85 kg Patient Problems: Current Active Problems Altered mental status (Acute) GI bleed (Acute) Sepsis (Acute) Pneumonia (Acute) End stage renal disease (Chronic) Atrial fibrillation (Chronic) Type 2 diabetes mellitus (Chronic) Senile debility (Acute) - VTE Risk Labs: VTE Related Lab Results Hgb 7.9 g/dL (14.1-18.0) L 07/20/21 05:37 Hct 26.5 % (42.0-52.0) L 07/20/21 05:37 Plt Count 248 K/mm3 (142-424) 07/20/21 05:37 PT 49.6 seconds (10.1-12.5) H 07/20/21 07:30 INR 4.94 (0.9-1.1) H 07/20/21 07:30 BUN 109 mg/dl (9-20) H* 07/20/21 05:37 Creatinine 7.20 mg/dl (0.66-1.25) H 07/20/21 05:37 Estimated Creat Clear 13 mL/min (50-200) 07/20/21 05:37 Was VTE Risk Assessment Performed: No Clinical Trial Participant: No - Prophylaxis VTE Prophylaxis Ordered?: Yes Types of VTE Prophylaxis: TEDS Knee High Location of Applied Device: Bilateral Lower Extremeties
--- NOTE | 2021-07-20 12:11 | HMH.GSCON ---
*Admission Date: 07/20/21 *Reason for consult:: GI bleed *History of present illness: Patient is a 65-year-old male with history of end-stage renal disease requiring dialysis twice weekly. He is a resident at [facility] in [place]. He has a history of chronic atrial fibrillation. Patient was noted to have some hypotension and confusion at the assisted on 07/19/2021. This initiated transfer to the emergency department for further assessment and management. Patient had hypotension and had some black tarry stools and coffee-ground emesis. Imaging revealed gastric distention. He had nasogastric tube placed with removal of 2 L of gastric contents which was dark to black in color. Patient was started on supplemental oxygen for hypoxemia. With his tachycardia, hypotension, tachypnea he met sepsis criteria and was started on broad-spectrum antibiotics. Apparently numerous attempts were made to transfer the patient to [facility] as well as to surrounding states given his dependence on hemodialysis and this was unsuccessful. Patient was therefore admitted for further inpatient management. Overnight the patient did require fluid resuscitation and was started on Levophed. Patient is on chronic warfarin anticoagulation therapy for chronic atrial fibrillation. INR on admission was 5.25. Review of Systems - Review of Systems Review of systems:: unable to obtain [facility] History Medical History: Reports:: Atrial Fibrillation, Diabetes Mellitus Type 2, Hypertension, Renal Disease (ESRD on HD T,R,S) Denies:: Cancer, MRSA *Have you ever received a pneumonia vaccine?: Yes *Have you received a flu vaccine this season?: Yes Other Medical History: Reports: Glaucoma, Thyroid Disease Laterality Cases: Left: Total Knee Replacement Amputation: No Fractures: No - *Social History Smoking Status: Smoker, status unknown Alcohol Intake: never *Occupational Status:: retired Housing: assisted living facility *Travel in the last 8 weeks: None Family Hx:: No significant family history Meds Home Medications Medication Instructions Recorded Confirmed Type Acetaminophen [Tylenol 325mg 650 mg PO Q4HP PRN 07/19/21 07/20/21 History Tablet] Atorvastatin Calcium [Lipitor 40mg 40 mg PO HS 07/19/21 07/19/21 History Tab] Bisacodyl [Bisacodyl 10mg Supp] 1 supp RC Q72H PRN 07/19/21 07/20/21 History Bumetanide 4 mg PO DAILY 07/19/21 07/19/21 History Docusate Sodium [Docusate Sodium 100 mg PO DAILY 07/19/21 07/19/21 History 100mg Cap] Ferric Citrate [Auryxia] 210 mg PO TIDWMEAL 07/19/21 07/20/21 History Finasteride [Proscar 5mg Tablet] 5 mg PO DAILY 07/19/21 07/19/21 History Gabapentin [Gabapentin 100mg Cap] 100 mg PO DAILY 07/19/21 07/19/21 History [place]-3 Fatty Acids/Fish Oil [Fish 1,000 mg PO TID 07/19/21 07/20/21 History Oil 1,000 mg Capsule] Omeprazole Magnesium [Prilosec Otc 20 mg PO DAILY 07/19/21 07/19/21 History 20mg Tab] Sodium Bicarbonate 1,950 mg PO BID 07/19/21 07/19/21 History Tamsulosin HCl 0.4 mg PO HS 07/19/21 07/19/21 History Warfarin Sodium [Coumadin 3mg 6 mg PO DAILY 07/19/21 07/19/21 History tablet] calcitrioL [Calcitriol 0.25mcg 0.5 mcg PO DAILY 07/19/21 07/19/21 History Capsule] polyethylene glycoL 3350 [Miralax 17 gm PO DAILY 07/19/21 07/19/21 History 17gm Packet] timoloL maleate [Timoptic 0.5% 1 drp EYE-BOTH BID 07/19/21 07/19/21 History opth soln 5mL] Metoprolol Tartrate [Lopressor 25 mg PO BID 07/20/21 07/20/21 History 25mg tablet] Allergies Allergy/AdvReac Type Severity Reaction Status Date / Time No Known Allergies Allergy Verified 07/19/21 18:12 Exam Vital signs and Labs for Last 24 Hours: Temp Pulse Resp BP Pulse Ox 98.0 F 93 H 19 100/62 L 97 07/20/21 11:00 07/20/21 11:00 07/20/21 11:00 07/20/21 11:00 07/20/21 11:00 Laboratory Results - last 24 hr 07/19/21 17:35: WBC 7.8, RBC 3.07 L, Hgb 8.6 L, Hct 27.3 L, MCV 89.
--- NOTE | 2021-07-20 16:22 | PC.NURSE ---
Spoke to and [facility], no beds available at this time.
--- NOTE | 2021-07-20 16:25 | ECG_ITS ---
APPROVED REPORT Exam: Resting ECG HR:89 bpm ECG Measurements Heart Rate 89 AXES NC 192 P 58 QRSd 126 QRS -47 QT 388 T 65 QTc 472 Conclusion Sinus rhythm with marked sinus arrhythmia Left axis deviation Left bundle branch block Abnormal ECG Electronically signed by : Yusef Juarez MD 07/21/2021 09:49:40
--- NOTE | 2021-07-20 17:19 | HMH.DCSUM ---
General - General Admission date:: 07/19/21 Discharge date: 07/20/21 HPI HPI: Mr. Blackman is a 65-year-old -[place] male with past medical history of end-stage renal disease on dialysis Friday and Friday. He resides [facility]. Was noted to have worsening hypotension and some confusion at his alf yesterday. This initiated transfer to the ER for further assessment and management. On arrival was found to be hypotensive, having black tarry stools and some coffee-ground emesis. Images of his abdomen showed extensive distention of his stomach but no ramy small bowel obstruction. NG was placed with prompt removal of over 2 L of gastric contents that was dark to black in color. Patient was also afebrile on arrival but hypoxemic. Initiated on supplemental oxygen. Given his tachycardia, hypotension, tachypnea, patient met sepsis criteria and was started on broad-spectrum antibiotics including vancomycin and Zosyn. Numerous attempts made to transfer patient given his dependence on hemodialysis and our inability to provide this service. Unfortunately there were no facilities within a 200 mile radius plus [place] able to accept transfer. Patient admitted for further management of concern for small bowel obstruction, GI bleed, hypotension/sepsis. Initial labs showed hemoglobin in the mid 8 range. Repeat labs overnight remained in the mid 8 range until this morning with morning hemoglobin of 7.9. No bright red blood per NG tube or per rectum. Patient received over 2 L of IV fluid resuscitation but has required Levophed overnight to maintain maps greater than 60. Developed some A. fib with RVR necessitating as needed doses of IV metoprolol. Patient is more alert and interactive this morning and able to answer questions. This is significant improvement from reported presentation in the ER last night. Hospital Course Hospital Course: -year-old male with end-stage renal disease, diabetes, admitted for sepsis and hypotension. Problems addressed as follows: Sepsis Pneumonia -Initiated on broad-spectrum antibiotics, cultures obtained. -Patient hypotensive, necessitating Levophed. Have been able to continue to wean Levophed during hospitalization. Given significant IV fluid resuscitation. Hemoglobin is dropped below 8, will receive 1 unit of packed red blood cells. After receiving fluids and colloid replacement, patient was weaned off Levophed prior to discharge to tertiary care center. -Unclear source of infection at this time however have concern for pneumonia versus UTI. Patient has new oxygen requirement and focal findings on chest imaging. End-stage renal disease - Receives dialysis on Tuesdays and Saturdays. Has been unable to have fluid removed at recent dialysis sessions due to hypotension. Fluid was actually given back this past Friday. Still makes some urine, is oliguric. This complicates his continued admission. Will reevaluate need for transfer daily given clinical progress and volume status. Is due for dialysis tomorrow per his regular schedule. - severe uremia. This complicates his coagulopathy, puts him at risk for complications from a cardiac standpoint, and is an urgent reason for dialysis. Have made numerous calls to over 10 different hospitals in the critical access hospital and bordering states. Initially unable to find placement. [facility] has graciously accepted the patient and we will transfer for further management and dialysis. Atrial fibrillation - On metoprolol twice daily. Has required a few IV doses overnight due to worsening A. fib with RVR given Levophed usage. Also on anticoagulation with warfarin. INR supratherapeutic at greater than 5 on admission. Holding warfarin for now. INR this morning in the mid 4 range. Recommend continue to hold warfarin. Did not receive any FFP or desmopressin for coagulopathy. No overt bleeding noted. -Of note, converted to sinus rhythm afte
--- NOTE | 2021-07-20 17:44 | PC.NURSE ---
1705- Pt accepted at [facility] MD [facility] is accepting pt 1708-MD Hopkins made aware
--- NOTE | 2021-07-20 20:11 | PC.NURSE ---
0920- BP 81/50. Levo gtt increased to 6mcg/min 1055- BP 114/76 Levo gtt decreased to 4mcg/min 1130- BP 122/52 Levo gtt decreased to 2mcg/min 1230- BP 91/49 Levo gtt increased to 4mcg/min 1520- BP 113/76 Levo gtt decreased to 2mcg/min 1700- BP 109/62 Levo gtt put on standby, pt's BP has remained stable. Gtt was turned off at this time, no other concerns from this point until pt left the building to [facility]
== END 2021-07-20 18:54 | disposition short-term general hospital (02) | DRG 871 ==
LOC: ER 19:52 → ICU 21:46
PROVIDERS: Student in an Organized Health Care Education/Training Program; Admitting Provider Internal Medicine Adolescent Medicine; Emergency Provider Student in an Organized Health Care Education/Training Program; Visit Provider Internal Medicine Adolescent Medicine
DX: A41.9 Sepsis, unspecified organism (principal); J18.9 Pneumonia, unspecified organism; N18.6 End stage renal disease; R65.21 Severe sepsis with septic shock; K29.71 Gastritis, unspecified, with bleeding; K25.4 Chronic or unspecified gastric ulcer with hemorrhage; J96.90 Respiratory failure, unspecified, unspecified whether with hypoxia or hypercapnia; I48.20 Chronic atrial fibrillation, unspecified; I12.0 Hypertensive chronic kidney disease with stage 5 chronic kidney disease or end stage renal disease; G93.40 Encephalopathy, unspecified; N39.0 Urinary tract infection, site not specified; Z20.822 Contact with and (suspected) exposure to COVID-19; Z79.01 Long term (current) use of anticoagulants; E11.22 Type 2 diabetes mellitus with diabetic chronic kidney disease; Z79.899 Other long term (current) drug therapy; Z99.2 Dependence on renal dialysis; R79.1 Abnormal coagulation profile; Z96.652 Presence of left artificial knee joint
CPT/HCPCS: 36415; 70450; 71045; 71250; 74018; 74176; 80053; 81001; 82272; 82803; 83605; 83735; 84484; 85025; 85610; 86850; 87040; 87086; 93005; 96365; 96367; 96375; 99285; C9803; G0328; J2354; J2543; J3370; P9016; U0003; U0005

== ENCOUNTER → 2021-08-06 07:25 | Outpatient (CLI) | payer MEDICARE, MEDICAID, SELFPAY ==
[2021-08-06 14:38] LABS: Basophils % 0.4 % (0.1-2.0); Eosinophils # 0.2 K/mm3 (0.0-0.4); Eosinophils % 2.2 % (0.1-12.0); Hematocrit 35.4 % (42.0-52.0); Hemoglobin 10.9 g/dL (14.1-18.0); Lymphocytes # 1.7 K/mm3 (0.7-4.5); Lymphocytes % 25.4 % (10-50); Mean Corpuscular HGB Conc 30.8 g/dL (31.8-35.4); Mean Corpuscular Hemoglobin 28.9 pg (27.0-31.2); Mean Corpuscular Volume 93.7 fl (80-94); Mean Platelet Volume 9.3 fl (7.4-10.4); Monocytes # 0.5 K/mm3 (0.1-1.0); Neutrophils # 4.4 K/mm3 (1.8-7.8); Neutrophils % 64.1 % (37.0-80.0); Platelet Count 208 K/mm3 (142-424); Red Blood Count 3.78 M/mm3 (4.60-6.20); Red Cell Distribution Width 17.8 % (11.5-17.5); White Blood Count 6.8 K/mm3 (4.8-10.8)
[2021-08-06 14:51] LABS: Chloride 97 mmol/L (98-107); Potassium 4.3 mmoL/L (3.5-5.1); Sodium 135 mmol/L (136-145)
[2021-08-06 14:54] LABS: Alanine Aminotransferase 12 U/L (12-78); Albumin Level 2.4 g/dl (3.5-5.0); Albumin/Globulin Ratio 0.9 (1.1-1.8); Alkaline Phosphatase 75 U/L (38-126); Anion Gap 8.3 mEq/L (5-15); Aspartate Amino Transferase 22 U/L (17-59); Bilirubin,Total 0.4 mg/dl (0.2-1.3); Blood Urea Nitrogen 25 mg/dl (9-20); Calcium 8.1 mg/dl (8.4-10.2); Carbon Dioxide 34 mmol/L (22.0-30.0); Chol/HDL Ratio 3.5 (1-3.5); Cholesterol 92 mg/dl (140-200); Estimated Glomerular Filt Rate 8 ml/min (>60); GFR (African American) 10 ML/MIN (>60); Globulin 2.6 g/dL (1.3-3.2); Glucose 74 mg/dl (74-100); HDL Cholesterol 26 mg/dl (40-60); Triglycerides 37 mg/dl (30-150); VLDL Cholesterol 7 mg/dL (0-40)
[2021-08-06 14:59] LABS: INR 7.91 (0.9-1.1); Prothrombin Time 76.7 seconds (10.1-12.5)
[2021-08-06 15:05] LABS: Direct LDL Cholesterol 47.98 mg/dL (100-129)
[2021-08-06 15:11] LABS: Hemoglobin A1C 4.7 % (4.0-6.0)
== END ==
PROVIDERS: Visit Provider Nurse Practitioner Family
DX: E11.9 Type 2 diabetes mellitus without complications (principal); N18.6 End stage renal disease
CPT/HCPCS: 36415; 80053; 80061; 83036; 85025; 85610

== ENCOUNTER → 2021-08-10 11:14 | Outpatient (CLI) | payer MEDICARE, MEDICAID, SELFPAY ==
[2021-08-10 11:43] LABS: Basophils # 0.1 K/mm3 (0-0.2); Basophils % 0.7 % (0.1-2.0); Eosinophils # 0.1 K/mm3 (0.0-0.4); Eosinophils % 1.9 % (0.1-12.0); Hematocrit 33.4 % (42.0-52.0); Hemoglobin 10.3 g/dL (14.1-18.0); Lymphocytes # 1.7 K/mm3 (0.7-4.5); Lymphocytes % 21.9 % (10-50); Mean Corpuscular Hemoglobin 28.6 pg (27.0-31.2); Mean Corpuscular Volume 92.4 fl (80-94); Mean Platelet Volume 8.1 fl (7.4-10.4); Monocytes # 0.4 K/mm3 (0.1-1.0); Neutrophils # 5.4 K/mm3 (1.8-7.8); Neutrophils % 70.6 % (37.0-80.0); Platelet Count 317 K/mm3 (142-424); Red Blood Count 3.61 M/mm3 (4.60-6.20); Red Cell Distribution Width 16.7 % (11.5-17.5); White Blood Count 7.6 K/mm3 (4.8-10.8)
== END ==
PROVIDERS: Visit Provider Internal Medicine Adolescent Medicine
DX: N18.6 End stage renal disease (principal)
CPT/HCPCS: 85025; 85610

== ENCOUNTER → 2021-08-11 18:33 | Outpatient (CLI) | payer MEDICARE, MEDICAID, SELFPAY | PROVIDERS: Visit Provider Nurse Practitioner Family | DX: R79.1 Abnormal coagulation profile (principal) | CPT/HCPCS: 85610 ==

== ENCOUNTER 2021-08-13 00:50 | Emergency (ER) | payer MEDICARE, MEDICAID, SELFPAY ==
[2021-08-13 00:46] VITALS: BP 142/88; PULSE 89; RESP 20; TEMP 37; O2SAT 99; BMI 25.7
[2021-08-13 00:47] VITALS: BMI 25.7
--- NOTE | 2021-08-13 00:48 | ECG_ITS ---
APPROVED REPORT Exam: Resting ECG HR:95 bpm ECG Measurements Heart Rate 95 AXES UT 186 P 36 QRSd 113 QRS -37 QT 365 T 27 QTc 417 Conclusion SINUS RHYTHM WITH OCCASIONAL ECTOPIC PREMATURE COMPLEXES LEFT AXIS DEVIATION [QRS AXIS < -30] MODERATE VOLTAGE CRITERIA FOR LVH, CONSIDER NORMAL VARIANT [MEETS CRITERIA IN ONE OF: R(aVL), S(V1), R(V5), R(V5/V6)+S(V1)] POSSIBLE SEPTAL MYOCARDIAL INFARCTION , OF INDETERMINATE AGE [30 ms Q WAVE IN V1/V2] ABNORMAL ECG UNCONFIRMED REPORT Electronically signed by : Yusef Juarez MD 08/13/2021 18:34:32
--- NOTE | 2021-08-13 00:48 | XR_ITS ---
PROCEDURE INFORMATION: Exam: XR Chest Exam date and time: 08/13/2021 12:48 AM Age: 65 years old Clinical indication: Sternal or substernal pain; Additional info: Cp TECHNIQUE: Imaging protocol: XR of the chest. Views: 1 view. COMPARISON: CT CHEST WO CON 07/19/2021 6:38 PM FINDINGS: Lungs: Patchy opacities at the left lung base could be atelectasis or infiltrate. Central vascular congestion with probable mild interstitial edema. Calcified granuloma near the right lung base. Pleural spaces: Trace left pleural effusion. No pneumothorax. Heart/Mediastinum: Heart is enlarged. Bones/joints: Multifocal degenerative changes. Suture anchors in the right humeral head. High riding right humeral head abuts the acromion, compatible with longstanding rotator cuff tendon tear. IMPRESSION: 1. Central vascular congestion with probable mild interstitial edema. 2. Trace left pleural effusion. Atelectasis versus pneumonia at the left lung base.
[2021-08-13 01:00] VITALS: BP 144/98; PULSE 92; O2SAT 99
[2021-08-13 01:04] LABS: Basophils # 0.1 K/mm3 (0-0.2); Basophils % 0.8 % (0.1-2.0); Eosinophils # 0.1 K/mm3 (0.0-0.4); Eosinophils % 1.7 % (0.1-12.0); Hemoglobin 8.6 g/dL (14.1-18.0); Lymphocytes # 1.8 K/mm3 (0.7-4.5); Lymphocytes % 22.4 % (10-50); Mean Corpuscular HGB Conc 31.5 g/dL (31.8-35.4); Mean Corpuscular Hemoglobin 28.8 pg (27.0-31.2); Mean Corpuscular Volume 91.3 fl (80-94); Mean Platelet Volume 8.1 fl (7.4-10.4); Monocytes # 0.4 K/mm3 (0.1-1.0); Monocytes % 4.9 % (1.7-9.3); Neutrophils # 5.7 K/mm3 (1.8-7.8); Neutrophils % 70.2 % (37.0-80.0); Platelet Count 351 K/mm3 (142-424); Red Cell Distribution Width 16.6 % (11.5-17.5); White Blood Count 8.1 K/mm3 (4.8-10.8)
[2021-08-13 01:09] LABS: Hematocrit 27.3 % (42.0-52.0)
--- NOTE | 2021-08-13 01:21 | HMH.EDCP ---
ED Disposition Clinical Impression: End stage renal disease, Prolonged INR Chest pain Qualifiers: Chest pain type: unspecified Qualified Code(s): R07.9 - Chest pain, unspecified Cellulitis Qualifiers: Site of cellulitis: extremity Site of cellulitis of extremity: upper extremity Laterality: left Qualified Code(s): L03.114 - Cellulitis of left upper limb Disposition: Home, Self-Care Condition on Discharge: Good Instructions: DI for Atypical Chest Pain Additional Instructions: follow with dr cunha Referrals: Provider,Referral, [Referring] - - Critical Care Critical Care Time: No Attestation: On 08/13/21, the high probability of a clinically significant, sudden or life threatening deterioration of the following system(s) required my full and direct attention, intervention and personal management. The time I documented below is in addition to time spent performing reported procedures but includes the following listed in this critical care notation. Medical Decision Making - Medical Records Medical records reviewed: Yes: I reviewed the patient's medical records. - [place] Inquiry Pt receiving controlled substance: No Vital Signs: 08/13/21 00:46 08/13/21 01:00 08/13/21 01:30 Temperature 98.6 F Temperature Source Oral Pulse Rate 92 H 93 H Pulse Rate [Right] 89 Respiratory Rate 20 Blood Pressure 144/98 H 140/94 H Blood Pressure [Right Arm] 142/88 H Blood Pressure Mean [Right Arm] 106 Blood Pressure Source [Right Arm] Manual Cuff/ Auscultation 02 Sat by Pulse Oximetry 99 99 100 Oxygen Delivery Method Room Air Room Air Room Air 08/13/21 02:06 Temperature Temperature Source Pulse Rate 96 H Pulse Rate [Right] Respiratory Rate Blood Pressure 136/96 H Blood Pressure [Right Arm] Blood Pressure Mean [Right Arm] Blood Pressure Source [Right Arm] 02 Sat by Pulse Oximetry 99 Oxygen Delivery Method Room Air - Lab Data Lab results reviewed: Yes: I reviewed the patient's lab results. Lab Results 08/13/21 00:53: WBC 8.1, RBC 3.00 L, Hgb 8.6 L, Hct 27.3 L, MCV 91.3, MCH 28.8, MCHC 31.5 L, RDW 16.6, Plt Count 351, MPV 8.1, Neut % (Auto) 70.2, Lymph % (Auto) 22.4, [place] % (Auto) 4.9, Eos % (Auto) 1.7, Baso % (Auto) 0.8, Neut # (Auto) 5.7, Lymph # (Auto) 1.8, [place] # (Auto) 0.4, Eos # (Auto) 0.1, Baso # (Auto) 0.1 08/13/21 00:53: Sodium 133 L, Potassium 4.2, Chloride 92 L, Carbon Dioxide 38 H, Anion Gap 7.2, BUN 27 H, Creatinine 5.80 H, Estimated Creat Clear 16, Estimated GFR 10 L*, Est GFR ( Amer) 12 L*, Glucose 105 H, Calcium 8.5, Magnesium 1.6, Total Bilirubin 0.6, Direct Bilirubin 0.2, Conjugated Bilirubin 0.0, Indirect Bilirubin 0.4, Unconjugated Bilirubin 0.3, AST 36, ALT 17, Alkaline Phosphatase 112, Troponin I 0.03, C-Reactive Protein 44.2 H, Total Protein 5.5 L, Albumin 2.6 L 08/13/21 00:53: ESR 28 H 08/13/21 00:53: Procalcitonin 0.704 08/13/21 00:53: PT 90.0 H, INR 8.00 H 08/13/21 03:43: Troponin I 0.02 Result diagrams: 08/13/21 00:53 08/13/21 00:53 Orders (Tests/Meds): ED MEDICATIONS Generic Name Dose Route Start Last Admin Trade Name Freq PRN Reason Stop Dose Admin Sodium Chloride 1,000 mls @ 999 mls/hr 08/13/21 01:00 Sod Chlor 0.9% 1000ml Bag IV 08/13/21 02:00 .Q1H1M [facility] ORDERS Category Date Time Status Troponin I Q3H Lab 08/13/21 07:00 Ordered - Radiology Data #1 Image(s): Chest Image Reviewed: Yes I have reviewed radiologist's interpretation Preliminary Findings: Abnormal - ECG Data Tracing #1 Normal Sinus Rhythm: Yes Ischemic changes: non-specific ST-T wave changes - Physician Consults Physician Consulted: alphonse Reason -: Pt condition Medical Decision Narrative: has stable exam and labs with ekg ok-card enz -ok and changes lt upper ext known to pcp Chest Pain HPI - General Chief Complaint: Chest Pain Stated Complaint: L ARM & CHEST PAIN, FISTULA IN L ARM Time Seen by Provider: 08/13/21 01:21 Mode
[2021-08-13 01:30] VITALS: BP 140/94; PULSE 93; O2SAT 100
[2021-08-13 01:32] LABS: Procalcitonin 0.704 ng/mL (0.0-2.0)
--- NOTE | 2021-08-13 01:33 | PC.NURSE ---
HERSON LUNA speaking with Dr. Juarez
[2021-08-13 01:34] LABS: Erythrocyte Sedimentation Rate 28 mm/hr (0-20)
[2021-08-13 01:40] LABS: Chloride 92 mmol/L (98-107); Potassium 4.2 mmoL/L (3.5-5.1); Sodium 133 mmol/L (136-145)
[2021-08-13 01:43] LABS: Alanine Aminotransferase 17 U/L (12-78); Albumin Level 2.6 g/dl (3.5-5.0); Alkaline Phosphatase 112 U/L (38-126); Anion Gap 7.2 mEq/L (5-15); Aspartate Amino Transferase 36 U/L (17-59); Bilirubin,Direct 0.2 mg/dl (0.0-0.4); Bilirubin,Indirect 0.4 mg/dL (0.0-0.9); Bilirubin,Total 0.6 mg/dl (0.2-1.3); Bilirubin,Unconjugated 0.3 mg/dL (0.0-1.1); Blood Urea Nitrogen 27 mg/dl (9-20); Calcium 8.5 mg/dl (8.4-10.2); Carbon Dioxide 38 mmol/L (22.0-30.0); Creatinine Clearance Estimated 16 mL/min (50-200); Estimated Glomerular Filt Rate 10 ml/min (>60); Glucose 105 mg/dl (74-100); Total Protein,Serum 5.5 g/dl (6.3-8.2)
--- NOTE | 2021-08-13 01:43 | PC.NURSE ---
Dr. Herr notified on critical labs: pt/inr, creatinine, potassium, and gfr.
[2021-08-13 01:44] LABS: GFR (African American) 12 ML/MIN (>60); Magnesium 1.6 mg/dl (1.6-2.3)
[2021-08-13 01:49] LABS: C-Reactive Protein 44.2 mg/L (0-4)
[2021-08-13 01:58] LABS: Troponin I 0.03 ng/ml (0.00-0.034)
[2021-08-13 02:06] VITALS: BP 136/96; PULSE 96; O2SAT 99
[2021-08-13 04:18] LABS: Troponin I 0.02 ng/ml (0.00-0.034)
[2021-08-13 04:22] VITALS: BP 122/83; PULSE 75; RESP 19; TEMP 36.8; O2SAT 98
== END 2021-08-13 04:53 | disposition home or self-care (01) ==
PROVIDERS: Emergency Provider Emergency Medicine; PCP Internal Medicine Adolescent Medicine
DX: N18.6 End stage renal disease (principal); L03.114 Cellulitis of left upper limb; I48.91 Unspecified atrial fibrillation; E11.9 Type 2 diabetes mellitus without complications; I10 Essential (primary) hypertension; Z79.899 Other long term (current) drug therapy
CPT/HCPCS: 36415; 71045; 80048; 80076; 83735; 84145; 84484; 85025; 85610; 85651; 86140; 93005; 96365; 99284

== ENCOUNTER → 2021-08-13 06:52 | Outpatient (CLI) | payer MEDICARE, MEDICAID, SELFPAY ==
[2021-08-13 13:08] LABS: INR 7.34 (0.9-1.1); Prothrombin Time 71.6 seconds (10.1-12.5)
== END ==
PROVIDERS: Visit Provider Nurse Practitioner Family
DX: Z51.81 Encounter for therapeutic drug level monitoring (principal); Z79.01 Long term (current) use of anticoagulants
CPT/HCPCS: 36415; 85610

== ENCOUNTER → 2021-08-22 11:54 | Outpatient (REF) | payer MEDICARE, MEDICAID, SELFPAY ==
[2021-08-22 12:28] LABS: Microscopic, Urine URINE MICROSCOPIC (MICROSCOPIC)
[2021-08-22 12:33] LABS: Appearance,Urine CLEAR (Clear); Bilirubin,Urine Negative (Negative); Blood, Urine TRACE-I (Negative); Color,Urine YELLOW (Yellow); Glucose,Urine (UA) Negative (Negative); Ketones,Urine Negative (Negative); Leukocyte Esterase,Urine TRACE (Negative); Nitrate,Urine Negative (Negative); PH,Urine 8.5 (5.0-8.5); Protein,Urine 2+ (Negative); Specific Gravity, Urine 1.015 (1.005-1.030); Urobilinogen,Urine 0.2 EU/dl (0.2)
[2021-08-22 13:00] LABS: Bacteria,Urine 1+ /lpf; RBC,Urine Occasional #/hpf (0-3)
== END ==
LOC: LAB.DROPOF 11:54
PROVIDERS: Visit Provider Internal Medicine Adolescent Medicine
DX: R35.0 Frequency of micturition (principal)
CPT/HCPCS: 81001

== ENCOUNTER → 2021-08-30 07:57 | Outpatient (CLI) | payer MEDICARE, MEDICAID, SELFPAY ==
[2021-08-30 15:13] LABS: Basophils % 0.3 % (0.1-2.0); Eosinophils # 0.2 K/mm3 (0.0-0.4); Eosinophils % 2.8 % (0.1-12.0); Hematocrit 32.9 % (42.0-52.0); Hemoglobin 9.9 g/dL (14.1-18.0); Lymphocytes # 1.5 K/mm3 (0.7-4.5); Lymphocytes % 20.2 % (10-50); Mean Corpuscular HGB Conc 30.3 g/dL (31.8-35.4); Mean Corpuscular Hemoglobin 28.6 pg (27.0-31.2); Mean Corpuscular Volume 94.6 fl (80-94); Mean Platelet Volume 9.4 fl (7.4-10.4); Monocytes # 0.5 K/mm3 (0.1-1.0); Monocytes % 6.8 % (1.7-9.3); Neutrophils # 5.3 K/mm3 (1.8-7.8); Neutrophils % 69.9 % (37.0-80.0); Platelet Count 284 K/mm3 (142-424); Red Blood Count 3.48 M/mm3 (4.60-6.20); Red Cell Distribution Width 17.7 % (11.5-17.5); White Blood Count 7.6 K/mm3 (4.8-10.8)
== END ==
PROVIDERS: Visit Provider Nurse Practitioner Family
DX: E11.9 Type 2 diabetes mellitus without complications (principal)
CPT/HCPCS: 36415; 85025

== ENCOUNTER → 2021-09-03 06:17 | Outpatient (CLI) | payer MEDICARE, MEDICAID, SELFPAY ==
[2021-09-03 07:32] LABS: Basophils % 0.5 % (0.1-2.0); Eosinophils # 0.1 K/mm3 (0.0-0.4); Hematocrit 31.8 % (42.0-52.0); Hemoglobin 9.9 g/dL (14.1-18.0); Lymphocytes % 28.8 % (10-50); Mean Corpuscular HGB Conc 31.1 g/dL (31.8-35.4); Mean Corpuscular Hemoglobin 28.9 pg (27.0-31.2); Mean Corpuscular Volume 92.7 fl (80-94); Mean Platelet Volume 7.9 fl (7.4-10.4); Monocytes # 0.6 K/mm3 (0.1-1.0); Monocytes % 7.9 % (1.7-9.3); Neutrophils # 4.2 K/mm3 (1.8-7.8); Neutrophils % 60.8 % (37.0-80.0); Platelet Count 284 K/mm3 (142-424); Red Blood Count 3.43 M/mm3 (4.60-6.20); Red Cell Distribution Width 17.3 % (11.5-17.5)
== END ==
PROVIDERS: Visit Provider Nurse Practitioner Family
DX: N18.6 End stage renal disease (principal); D62 Acute posthemorrhagic anemia
CPT/HCPCS: 36415; 85025

== ENCOUNTER → 2021-09-07 11:18 | Outpatient (REF) | payer MEDICARE, MEDICAID, SELFPAY ==
[2021-09-07 11:31] LABS: Microscopic, Urine URINE MICROSCOPIC (MICROSCOPIC)
[2021-09-07 11:44] LABS: Appearance,Urine CLEAR (Clear); Bilirubin,Urine Negative (Negative); Blood, Urine 1+ (Negative); Color,Urine YELLOW (Yellow); Glucose,Urine (UA) Negative (Negative); Ketones,Urine Negative (Negative); Leukocyte Esterase,Urine 1+ (Negative); Nitrate,Urine Negative (Negative); PH,Urine 8.5 (5.0-8.5); Protein,Urine 2+ (Negative); Specific Gravity, Urine 1.015 (1.005-1.030); Urobilinogen,Urine 0.2 EU/dl (0.2)
[2021-09-07 11:48] LABS: Basophils % 0.5 % (0.1-2.0); Eosinophils # 0.2 K/mm3 (0.0-0.4); Eosinophils % 2.7 % (0.1-12.0); Hematocrit 32.8 % (42.0-52.0); Hemoglobin 10.3 g/dL (14.1-18.0); Lymphocytes # 2.6 K/mm3 (0.7-4.5); Lymphocytes % 41.8 % (10-50); Mean Corpuscular HGB Conc 31.5 g/dL (31.8-35.4); Mean Corpuscular Hemoglobin 28.8 pg (27.0-31.2); Mean Corpuscular Volume 91.4 fl (80-94); Mean Platelet Volume 7.2 fl (7.4-10.4); Monocytes # 0.5 K/mm3 (0.1-1.0); Monocytes % 7.8 % (1.7-9.3); Neutrophils % 47.2 % (37.0-80.0); Platelet Count 247 K/mm3 (142-424); Red Blood Count 3.59 M/mm3 (4.60-6.20); Red Cell Distribution Width 16.1 % (11.5-17.5); White Blood Count 6.3 K/mm3 (4.8-10.8)
[2021-09-07 12:09] LABS: Squamous Epithelial Cell,Urine Occasional #/hpf (0-5)
[2021-09-07 12:36] LABS: Chloride 97 mmol/L (98-107); Sodium 133 mmol/L (136-145)
[2021-09-07 12:37] LABS: Potassium 4.1 mmoL/L (3.5-5.1)
[2021-09-07 12:39] LABS: Alanine Aminotransferase 10 U/L (12-78); Albumin Level 2.3 g/dl (3.5-5.0); Albumin/Globulin Ratio 0.8 (1.1-1.8); Alkaline Phosphatase 91 U/L (38-126); Anion Gap 3.1 mEq/L (5-15); Aspartate Amino Transferase 26 U/L (17-59); Blood Urea Nitrogen 35 mg/dl (9-20); Calcium 8.8 mg/dl (8.4-10.2); Carbon Dioxide 37 mmol/L (22.0-30.0); Estimated Glomerular Filt Rate 8 ml/min (>60); GFR (African American) 10 ML/MIN (>60); Globulin 2.9 g/dL (1.3-3.2); Glucose 69 mg/dl (74-100); Total Protein,Serum 5.2 g/dl (6.3-8.2)
== END ==
LOC: HMH.JM 11:18
PROVIDERS: Visit Provider Nurse Practitioner Family
DX: R41.0 Disorientation, unspecified (principal); N39.0 Urinary tract infection, site not specified; B96.4 Proteus (mirabilis) (morganii) as the cause of diseases classified elsewhere
CPT/HCPCS: 80053; 81001; 85025; 87086; 87088; 87186

== ENCOUNTER → 2021-09-24 13:59 | Outpatient (CLI) | payer MEDICARE, MEDICAID, SELFPAY ==
[2021-09-26 11:14] LABS: Hepatitis B Surface Antigen Negative (Negative)
== END ==
PROVIDERS: Visit Provider Internal Medicine Adolescent Medicine
DX: Z01.84 Encounter for antibody response examination (principal)
CPT/HCPCS: 87340

== ENCOUNTER → 2021-09-25 09:33 | Outpatient (CLI) | payer MEDICARE, MEDICAID, SELFPAY ==
[2021-10-23 21:35] LABS: Miscellaneous Test COMMMENT
== END ==
PROVIDERS: Visit Provider Internal Medicine Adolescent Medicine
DX: R41.82 Altered mental status, unspecified (principal)